=== PATIENT | female | born 1960 | race African-American/Black ===

== ENCOUNTER 2016-07-18 21:32 | Emergency (ER) | payer OTHER ==
[~2016-07-18] VITALS: Ht 162.6 cm; Wt 92.0 kg
[~2016-07-18 21:32] MED LIST: ATORVASTATIN CA40 MG PO; AVENTYL,PAMELOR50 MG PO; BUSPAR15 MG PO; DESYREL100 MG PO; DICLOFENAC SODI75 MG PO; FLOMAX0.4 MG PO; GABAPENTIN600 MG PO; GLIMEPIRIDE4 MG PO; GLUCOPHAGE500 MG; LISINOPRIL40 MG PO; LOPRESSOR100 M1 PO; METFORMIN HCL500 MG PO; METOPROLOL SUC100 MG PO; MORPHINE SULFAT15 M1 PO; MORPHINE SULFAT15 MG PO; OMEPRAZOLE20 MG PO; PROZAC20 MG PO; ZOCOR20 MG; ZOFRAN4 MG PO
[2016-07-18] MEDS ORDERED: ZANTAC300 MG PO (23:41)
[2016-07-18] MEDS ORDERED: ATARAX,VISTARIL25 MG PO (23:41)
[2016-07-18] MEDS ORDERED: PREDNISONE20 MG PO (23:41)
[2016-07-18] MEDS ORDERED: EPIPEN ADU0.3 MG/0.3 IM (23:49)
[2016-07-19] VITALS: BP 153/95
== END 2016-07-19 00:02 | disposition home or self-care (01) ==
LOC: EXP 21:32 → EME 21:32 → EXP 07-19 00:02
DX: T63.461A Toxic effect of venom of wasps, accidental (unintentional), initial encounter (principal); Z91.030 Bee allergy status; Z76.0 Encounter for issue of repeat prescription; E11.9 Type 2 diabetes mellitus without complications; E78.5 Hyperlipidemia, unspecified; I10 Essential (primary) hypertension; K21.9 Gastro-esophageal reflux disease without esophagitis; Z79.84 Long term (current) use of oral hypoglycemic drugs; F17.200 Nicotine dependence, unspecified, uncomplicated; Z88.6 Allergy status to analgesic agent; Z88.0 Allergy status to penicillin
CPT/HCPCS: 99281; 99284; J7512

== ENCOUNTER 2017-04-04 10:20 | Emergency (ER) | payer OTHER ==
[~2017-04-04] VITALS: Ht 157.5 cm; Wt 82.5 kg
[~2017-04-04 10:20] MED LIST changes: +ATARAX,VISTARIL25 MG PO; +EPIPEN ADU0.3 MG/0.3 IM; +PREDNISONE20 MG PO; +ZANTAC300 MG PO
[2017-04-04 11:17] LABS: EOSINOPHIL (%) 0.6 % (0-5); IMMATURE GRANULOCYTE (%) 0.4 % (0.0-0.7); INSTRUMENT ABS NEUTROPHIL CT 2.8 K/uL; LYMPHOCYTE COUNT 3.3 K/uL (1.0-2.8); MCH 31.3 PG (29.0-34.0); MCHC 33.2 G/DL (30.0-36.0); MCV 94.5 FL (83-99); MEAN PLAT.VOLUME 9.3 uM^3 (9.5-12.4); MONOCYTE (%) 7.7 % (3-12); MONOCYTE COUNT 0.5 K/uL (0-0.8); NEUTROPHIL (%) 42.3 % (45-76); NEUTROPHIL COUNT 2.8 K/uL (1.8-6.4); PLATELET COUNT 358 K/uL (156-360); RBC DIS.WIDTH-CV 12.8 % (11.8-14.6); RBC DIS.WIDTH-SD 44.7 % (39-53); RED BLOOD COUNT 4.34 M/uL (3.80-5.20); WHITE BLOOD COUNT 6.7 K/uL (4.1-10.2)
[2017-04-04 11:31] LABS: CHLORIDE 106 mEq/L (99-109); POTASSIUM 4.2 mEq/L (3.7-5.4); SODIUM 142 mEq/L (136-147)
[2017-04-04 11:33] LABS: GLUCOSE 86 mg/dL (70-99)
[2017-04-04 11:34] LABS: ANION GAP 9 MEQ/L (2-14)
[2017-04-04 11:37] LABS: GFR ESTIMATE (CALCULATED) > 59 mL/min/; UREA NITROGEN (BUN) 8 mg/dL (9-23)
[2017-04-04] MEDS ORDERED: MEDROL DOSEPAK4 MG PO (12:45)
[2017-04-04 12:48] VITALS: BP 113/72
== END 2017-04-04 12:51 | disposition home or self-care (01) ==
LOC: EME 10:20
PROVIDERS: Emergency Medicine
DX: M54.40 Lumbago with sciatica, unspecified side (principal); I10 Essential (primary) hypertension; G89.29 Other chronic pain; Z79.891 Long term (current) use of opiate analgesic; E78.5 Hyperlipidemia, unspecified; E11.9 Type 2 diabetes mellitus without complications; Z79.84 Long term (current) use of oral hypoglycemic drugs; F17.200 Nicotine dependence, unspecified, uncomplicated
CPT/HCPCS: 80048; 85025; 99281; 99284; J1885